=== PATIENT | male | born 1955 | race Caucasian/White ===

== ENCOUNTER → 2017-12-14 | Outpatient (CLI) | payer MEDICARE ==
--- NOTE | 2017-12-14 08:08 | CT ---
EXAMINATION TYPE: CT image guided sinus DATE OF EXAM: 12/14/2017 COMPARISON: NONE HISTORY: Chronic sinusitis CT DLP: 520 mGycm. Automated Exposure Control for Dose Reduction was Utilized. TECHNIQUE: CT scan of the sinuses is performed without contrast, axial images are obtained, coronal r eformatted images are also reviewed. 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 Within the rig ht maxillary sinus there is a chronic and osseous septum with circumferential mucosal thickening infe riorly. There is a 1.1 cm mucosal retention cyst versus polyp within the right maxillary sinus at the medial wall. Mild mucosal thickening is also seen anteriorly, laterally and posteriorly within the r ight maxillary sinus. Only a scant amount of mucosal thickening is seen within the left maxillary sin us and ethmoid sinuses. Frontal sinuses are well aerated as are the sphenoid sinuses. The mastoid air cells and middle ear cavities are well aerated. External devices are seen at the external auditory c anals. Osseous structures appear intact. Orbits are unremarkable globes are symmetric and extraocular muscles are also unremarkable. Visualized portions of the intracranial structures are slightly limit ed secondary to technique but demonstrate symmetric prominence compatible with age-related mild atrop hy. IMPRESSION: Postsurgical changes of the paranasal sinuses with right maxillary medial wall mucosal re tention cyst versus polyp, right maxillary chronic osseous septum, and scant mucosal thickening withi n the maxillary sinuses and ethmoid sinuses.
== END | disposition home or self-care (01) ==
LOC: RADCTMAIN 07:36
PROVIDERS: ATTEND Otolaryngology
DX: J34.89 Other specified disorders of nose and nasal sinuses (principal); Z98.890 Other specified postprocedural states
CPT/HCPCS: 70486